=== PATIENT | female | born 1945 | race Caucasian/White ===

== ENCOUNTER 2025-01-04 12:44 | Outpatient (REF) | payer MEDICARE, SELFPAY ==
[2025-01-04 13:07] LABS: MANUAL DIFF FLAG NO
[2025-01-04 13:24] LABS: Hematocrit 41.2 % (37.0-47.0); Hemoglobin 13.5 g/dl (12.0-16.0); Imm Gran Abs Auto 0.03 X10*3/uL (0.00-0.03); Imm Gran Pct Auto 0.4 % (0.0-0.4); Lymphocytes Absolute Auto 1.1 X10*3/uL (1.2-4.9); Mean Corpuscular HGB Conc 32.8 g/dl (31.0-35.0); Mean Corpuscular Hemoglobin 29.9 pg (27.0-33.0); Mean Corpuscular Volume 91.4 fL (80.0-98.0); NRBC Abs Auto 0.000 X10*3/uL (0.0-0.012); NRBC Pct Auto 0.0 /100WBC (0.0-0.2); Platelet Count 271 X10*3/uL (160-400); Red Blood Count 4.51 X10*6/uL (4.20-5.50); White Blood Count 8.0 X10*3/uL (4.8-10.8)
--- OUTSIDE RECORDS SUMMARY | 2025-01-04 13:39 | XMS_ITS | Patient Health Record ---
Author Organization [facility] Address [address] [place] [address] Care Team Providers Care Traffic Court Magistrate Name Role Phone Johnny Mally BASSETT Primary Care Provider Nikos Varela Unavailable [phone] Allergies Allergen (clinical drug ingredient) Drug/Non Drug Allergy documented on EMR Reaction Allergy Type Onset Date Status amoxicillin AMOXICILLIN (uncoded) Unknown Allergy Active Results Component Value Reference Range Notes Complete Blood Count Auto Di ff (Not yet reviewed by provider) Interpretation: Performing Lab:[facility], [address] [place] [id number] Notes/Report: White Blood Count 8.0 4.8-10.8 X10*3/uL Red Blood Count 4.51 4.20-5.50 X10*6/uL Hemoglobin 13.5 12.0-16.0 g/dl Hematocrit 41.2 37.0-47.0 % Mean Corpuscular Volume 91.4 80.0-98.0 fL Mean Corpuscular Hemoglobin 29.9 27.0-33.0 pg Mean Corpuscular HGB Conc 32.8 31.0-35.0 g/dl Red Cell Distribution Width 13.6 11.0-16.0 % Platelet Count 271 160-400 X10*3/uL Mean Platelet Volume 10.3 9.4-12.3 fL Neutrophils Percent Auto 77.1 45-73 % Imm Gran Pct Auto 0.4 0.0-0.4 % Lymphocytes Percent Auto 14.2 20-40 % Monocytes Percent Auto 6.5 2-11 % Eosinophils Percent Auto 1.3 0-4 % Basophils Percent Auto 0.5 0-2 % NRBC Pct Auto 0.0 0.0-0.2 /100WBC Neutrophils Absolute Auto 6.2 2.0-8.3 x10*3/u L Imm Gran Abs Auto 0.03 0.00-0.03 X10*3/uL Lymphocytes Absolute Auto 1.1 1.2-4.9 X10*3/u L Monocytes Absolute Auto 0.5 0.1-1.2 X10*3/uL Eosinophils Absolute Auto 0.1 0.0-0.4 X10*3/u L Basophils Absolute Auto 0.0 0.0-0.2 X10*3/uL NRBC Abs Auto 0.000 0.0-0.012 X10*3/uL Reason For Referral No Information Medications Medication SIG (Take, Route, Frequency, Duration) Notes Start Date End Date Status valACYclovir HCl 500 MG TAKE 1 TABLET BY MOUTH DAILY.. Oral for 30 Active Omeprazole 20 MG TAKE ONE CAPSULE BY MOUTH TWICE A DAY FOR 4 WEEK THEN TAKE ONE CAPSULE BY MOUTH EVERY DAY THEREAFTER Oral for 30 Unknown SinuCleanse Neti Pot Unknown Tums Smoothies 750 MG 1 tablet Orally On ce a day for 30 day(s) Unknown Caltrate 600+D 600-400 MG-UNIT 1 tablet with meals Orally Twice a day Unknown Imodium A-D 2 MG 1 tablet as needed Orally Four times a day Unknown Tylenol Extra Strength 500 MG 1 tablet as needed Orally every 6 hrs Unknown Hydrocortisone as directed before infusion Unknown Levothyroxine Sodium 50 MCG Oral for 30 Unknown Metoprolol Succinate ER 25 MG Oral for 30 Unknown Eliquis 2.5 MG TAKE ONE TABLET BY MOUTH TWICE A DAY Oral for 30 Unknown Advil 200 MG 1 tablet as needed Orally prn Unknown Immune Globulin (Human) once a month Unknown tylenol before infusion Unkn own Benadryl before infusion Unkn own Immunizations Vaccine Route Administration Date Status Comme nts Flu vaccine no Preserv 3 and > Unknown 01/17/2016 Admin istered Influenza Unknown 04/06/2020 Administered Influenza Unknown 04/06/2021 Administered Influenza Unknown 04/30/2022 Administered Influenza Unknown 04/28/2024 Administered Social History Alcohol Screen Question Answer Notes Did you have a drink containing alcohol in the p ast year? No Points 0 Interpretation Negative Section Notes: Nonsmoker; occ. alcohol Nonsmoker; occ. alcohol Nonsmoker; occ. alcohol Nonsmoker; occ. alcohol Nonsmoker; occ. alcohol Nonsmoker; occ. alcohol Nonsmoker; occ. alcohol Nonsmoker; occ. alcohol Problems Problem Type SNOMED Code ICD Code Onset Dates Problem Status W/U Status Risk Notes Problem Irritable bowel syndrome (63963463) Irritable bowel syndrome (K58.9) Active confirmed Problem Rectal bleeding (30202261) Rectal bleeding (K62.5) Active confirmed Problem 951801718 Irritable bowel syndrome with diarrhea (K58.0) Active confirmed Problem Irritable bowel syndrome (14472998) IBS (irritable bowel syndrome) (K58.9) Active confirmed Problem 088494553 Gastroesophageal reflux disease without esophagitis (K21.9) Active confirmed Problem 015943357 Gastroesophageal reflux disease, esophagitis presence not specified (K21.9) Active confirmed Problem Hemorrhage of rectum and anus (096916195) Rectal bleed (K62.5) Active confirmed Problem 40916375 Diarrhea, unspecified type (R19.7) Active confirmed Problem Left lower quadrant pain (650476909) Intermittent left lower quadrant abdominal pain (R10.32) Active confirmed Vital Signs Temperature 97.9 degrees Fahrenheit 12/29/2024 Blood pressure diastolic 01 mm Hg 12/29/2024 Height 66 in 12/29/2024 Blood pressure systolic 001 mm Hg 12/29/2024 Weight 163.2 lbs 12/29/2024 BMI 26.34 kg/m2 12/29/2024 Procedures Procedure Date Ordered Date Performed Result Body Sit e COLONOSCOPY 12/29/2024 N/A Encounters Encounter Location Date Provider Diagnosis [facility] [address] [place] [phone] 12/29/2024 Nikos Jeffery Rectal bleeding K62.5 and Irritable bowel syndrome K58.9 [facility] [address] [place] [phone] 12/29/2024 Nikos Jeffery Rectal bleed K62.5 Assessments Encounter Date Diagnosis (ICD Code) Assessment Notes Treatment Notes Treatment Clinical Notes Section Notes 12/29/2024 Irritable bowel syndrome (ICD-10 - K58.9) Overall, Jeromy appears quite well. We did review that her current symptoms of bleeding seem most consistent with her known perianal disease of internal hemorrhoids in relation to the irritable bowel syndrome and some constipation. The fact that she is on Eliquis would certainly predispose her to increased bleeding on that basis as well. However, I did advise her that given that her last colonoscopy was in 2017, she has a history of tubular adenomas, and the bleeding does seem to be increasing in frequency, it would not be unreasonable that she undergo a colonoscopy for definitive evaluation as it has been a long time since her last exam. Again, I advised her that the most likely diagnosis is that of hemorrhoidal bleeding. However, I advised her that it would be important to exclude a polyp or other lesion that could predispose to colon cancer down the road. She is 79 years old but she appears to be in good clinical condition and I think she would tolerate the procedure without problems. Full consent has been obtained from her for the colonoscopy, including risks of bleeding and perforation. The procedure will be done with monitored anesthesia care. We did review the rationale for the colonoscopy in regard to colorectal cancer prevention and/or early detection. In the meantime, I did advise her to be sure to stay on a healthy and high-fiber diet so as to minimize constipation and straining. I did advise her to contact me prior to the procedure if she develops any increasing symptomatology. She was given the below instructions regarding adjustment of her Eliquis for the procedure. Jeromy was very comfortable with this plan. Thank you again for allowing me to participate in Jeromy's care. I shall continue to keep you advised of her progress. 12/29/2024 Rectal bleeding (ICD-10 - K62.5) Overall, Jeromy appears quite well. We did review that her current symptoms of bleeding seem most consistent with her known perianal disease of internal hemorrhoids in relation to the irritable bowel syndrome and some constipation. The fact that she is on Eliquis would certainly predispose her to increased bleeding on that basis as well. However, I did advise her that given that her last colonoscopy was in 2017, she has a history of tubular adenomas, and the bleeding does seem to be increasing in frequency, it would not be unreasonable that she undergo a colonoscopy for definitive evaluation as it has been a long time since her last exam. Again, I advised her that the most likely diagnosis is that of hemorrhoidal bleeding. However, I advised her that it would be important to exclude a polyp or other lesion that could predispose to colon cancer down the road. She is 79 years old but she appears to be in good clinical condition and I think she would tolerate the procedure without problems. Full consent has been obtained from her for the colonoscopy, including risks of bleeding and perforation. The procedure will be done with monitored anesthesia care. We did review the rationale for the colonoscopy in regard to colorectal cancer prevention and/or early detection. In the meantime, I did advise her to be sure to stay on a healthy and high-fiber diet so as to minimize constipation and straining. I did advise her to contact me prior to the procedure if she develops any increasing symptomatology. She was given the below instructions regarding adjustment of her Eliquis for the procedure. Jeromy was very comfortable with this plan. Thank you again for allowing me to participate in Jeromy's care. I shall continue to keep you advised of her progress. 12/29/2024 Rectal bleed (ICD-10 - K62.5) Plan Of Treatment Pending Test Test Name Order Date COLONOSCOPY 12/29/2024 LIVER PROFILE 12/29/2024 IRON + IBC (FE) 12/29/2024 CBC w DIFF 12/29/2024 Complete Blood Count Auto Diff Ferritin 12/29/2024 Future Test Test Name Order Date COLONOSCOPY 12/31/2011 UPPER GI ENDOSCOPY 09/10/2016 COLONOSCOPY 09/10/2016 Next Appt Details Provider Name:Nikos Jeffery , 03/14/2025 01:30:00 PM, [address] [place] [address] , [place], [place], [phone], Insurance Providers Payer Name Payer Address Payer Phone Subscriber Number Group Number Insured Name Patient Relationship to Insured Coverage Start Date Coverage End Date [facility] [address] [place] [address] [id number] JEROMY BENNETT Self - patient is the insured Medical (General) History Medical History History ICD Code Colonoscopy 05-10-2002-negative for polyp s Skin cancer left ear-squamous Chronic lymphocytic leukemia (CLL)-dx'd in 2004-followed by Dr. 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 colonoscopy in 02/2017- no polyps, n o colitis EGD in 02/2017 with a small H H- no esophagitis nor Funes's, no celiac disease, no Hpylori Irritable bowel syndrome-had normal duod enal biopsies in 2016 CLL- followed at [facility] 03/2022 Surgical History Surgery Date(Month/Year) Tonsillectomy with finding of the lympho ma/CLL Skin cancers as above Cataracts Port in chest-removed in 2008 Cholecystectomy Appy Hysterectomy with BSO Spinal tumor- benign
--- OUTSIDE RECORDS SUMMARY | 2025-01-04 13:39 | XMS_ITS | Patient Health Record ---
[facility] Organization [facility] Address [address] [place] [address] Care Team Providers Care Engineer Internship Name Role Phone Rocco Mcguire MD Primary Care Provider Andrés Meade Unavailable [phone] Allergies Allergen (clinical drug ingredient) Drug/Non Drug Allergy documented on EMR Reaction Allergy Type Onset Date Status amoxicillin Amoxicillin Unknown Drug Allergy Act pierre Reason For Referral No Information Medications Medication SIG (Take, Route, Fr equency, Duration) Notes Start Date End Date Status Tylenol Active Citracal + D Not-Jarred ing Advil Not-Taking Gas-X 80 MG 1 tablet after meals and at bedtime as needed Orally Four times a day Active Gabapentin 300 MG (Prior Auth: Rx Ref#:[id number]) Oral; Duration: 30 Active traMADol HCl 50 MG (Schedule IV Drug) ( Prior Auth: Rx Ref#:[id number]) Oral; Duration: 5 Not-Taking LORazepam 0.5 MG 1 tablet as needed O rally every 6 hrs Active Tums 500 MG 1 tablet Orally Once a day Active Reclast 5 MG/100ML Intravenous Not-Taking Zantac Active Social History Tobacco Use: Social History Observation Description Date Details (start date - stop date) Former Smoker NA - NA Tobacco Use/Smoking Question Answer Notes Are you a: former smoker When did you stop smoking? 53 yrs ago Additional Findings: Tobacco Non-User Current no n-smoker Alcohol Screen Question Answer Notes Did you have a drink containing alcohol in the p ast year? No Points 0 Interpretation Negative Tobacco use other than smoking: Question Answer Notes Are you an other tobacco user? No Problems Problem Type SNOMED Code ICD Code Onset Dates Problem Status W/U Status Risk Notes Problem Acquired hammer toe of left foot (9973921524678 103) Hammertoe of left foot (M20.42) Active confirmed Problem Acquired hammer toe of right foot (2321688444649 105) Hammertoe of right foot (M20.41) Active confirmed Plan Of Treatment Pending Test Test Name Order Date [id number] OF HEMATOMA/FLUID 018 Insurance Providers Payer Name Payer Address Payer Phone Subscriber Number Group Number Insured Name Patient Relationship to Insured Coverage Start Date Coverage End Date [employer] Medicare [id number] [address] [address] [place] [address] [id number] Kaitlynn Rankin Self - patient is the insured Medical (General) History Medical History History ICD Code Colonic polyps Anxiety disorder Basal cell carcinoma Cataracts Carpal tunnel Chronic Lymphocytic leukemia(CLL) 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
--- OUTSIDE RECORDS SUMMARY | 2025-01-04 13:39 | XMS_ITS | Clinical Summary ---
Author Organization [facility] Address [address] [place] [address] Care Team Providers Care Steam Crane Operator Name Role Phone Unavailable Primary Care Provider Unavailabl e Social History Tobacco Use Types Packs/Day Years Used Date Smoking Tobacco: Never Assessed Comments Unknown Sex and Gender Information Value Date Recorded Sex Assigned at Not on file Legal Sex Female 3:46 PM EST Gender Identity Not on file Sexual Orientation Not on file Plan of Treatment Health Maintenance Due Date Last Done Comments DTaP,Tdap,and Td Vaccines (1 - Tdap) 1962 Pneumococcal Vaccine: 50+ Ye ars (1 of 1 - PCV) 1993 Zoster Vaccines (1 of 2) 1993 RSV Immunization Adult Patie nts (1 - 1-dose 75+ series) 2018 COVID-19 Vaccine ( - 2023-2 5 season) 2024 Depression Screening 05/16/2024 Falls Risk Assessment 05/16/2024 Osteoporosis Screening (Bone Density Screening) 05/16/2024 Social Influencers of Health Screening 05/16/2024 Influenza Vaccine (Season Ended) 2025 HIB Vaccines Aged Out No longer eligi ble based on patient's age to complete this topic HPV Vaccines Aged Out No longer eligi ble based on patient's age to complete this topic Hepatitis A Vaccines Aged Out No long er eligible based on patient's age to complete this topic Hepatitis B Vaccines Aged Out No long er eligible based on patient's age to complete this topic IPV Vaccines Aged Out No longer eligi ble based on patient's age to complete this topic MMR Vaccines Aged Out No longer eligi ble based on patient's age to complete this topic Meningococcal ACWY Vaccine Aged Out N o longer eligible based on patient's age to complete this topic Meningococcal B Vaccine Aged Out No l onger eligible based on patient's age to complete this topic RSV Immunization Patients Un tosha 20 months Aged Out No longer eligible b ased on patient's age to complete this topic Varicella Vaccines Aged Out No longer eligible based on patient's age to complete this topic
--- OUTSIDE RECORDS SUMMARY | 2025-01-04 13:39 | XMS_ITS | Data Portability ---
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 She was able to identify an association that her cough is worse when and slightly after she finishes eating or with her pills. A fiberoptic laryngoscopy was performed and was benign today. Further evaluation with a modified barium swallow may help determine if there is any aspiration events. We may review results with a telehealth [email or web address] Not available 02/09/2024 15:53:06 05/26/2024 05/26/[address] [facility] ed barium swallow shows flash laryngeal penetration as well as a prominent cricopharyngeal bar. She describes her cough can also be triggered by prolonged talking. 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 For the prominent cricopharyngeal bar a referral to gastroenterology may also be valuable as they can occasionally perform a dilation. The prominent cricopharyngeal muscle may represent a component of muscle tension in the area of the larynx again consistent with irritable larynx. She would like to discuss this further with her primary care team and then request referral to swallow therapy or GI through their office [email or web address] Not available 05/26/2024 16:29:15 Plan of Treatment Reminders Order Date Submit Date Provider Last Modified By Organization Details Last Modified Time Details Appointments None recorded. Lab None recorded. Referral None recorded. Procedures None recorded. Surgeries None recorded. Imaging [place], modified barium swallow study 2023 024 [facility] Diagnosit Imaging Dept, [address] [place] [address], [id number], 12:24:36 Medication Orders None recorded. Patient TargetsNo targets recorded. Patient InstructionsNo instructions recorded. Reason for Referral None Reported. Results Created Date Observation Date Name Description Value Unit Range Abnormal Flag Note LastModifiedBy Organization Detail LastModifiedTime 02/25/2008/21/2021 imagi ng/di agnos tic resul t No observ ation record ed. [email or web address] Not Available 01:53:27 02/25/2006/14/2021 imagi ng/di agnos tic resul t No observ ation record ed. [email or web address] Not Available 01:53:53 04/30/2004/29/2024 valeria GRULLON study [facility] Diagno stic Imagin g Depart ment [address] [place] [address] ____ Gus t: JEROMY BENNETT /Age/S ex: 3 - 79 - F Unit#: [id number] Locati on/Sta tus: CARISA T/PRE CLI Accoun t#: [id number] Mnemon ic/Ord ering Site: [facility]/S PDI Orderi ng Physic shira: DINO GARSIA MD ___ CR Barium Bibo w W Video - - 1007 Report Status :Ana Lilia GUTIERRES AL HISTOR Y: DYSPHA JULIANNA. STUDY: Modifi ed barium swallo w study COMPAR SINGH: None. HISTOR Y: Gus fuller is an 79-yea r-old female with histor y of dyspha julianna. Tonsil lectom y 2 years ago due to neopla sm. Denies radiat ion to the head and/or neck. TECHNI QUE: Multip le sequen tial fluoro scopic images of the latera l neck were obtain ed for a swallo wing functi on study. Barium enhanc ed consis tencie s of puddin g, honey, nectar , thin liquid , semi-s olid, and a 13 mm barium tablet were utiliz ed for evalua tion. Examin ation was perfor med with the speech therap ist sabrina fuller. VALENTE GS: There is a very small amount of flash laryng eal penetr ation with no eviden ce of felicia aspira tion on thin barium consis tency. No eviden ce for penetr ation or aspira tion on any of the other variou s consis tencie s. 13mm barium tablet was swallo wed withou t diffic ulty with prompt passag e of pill from the esopha kaylie into the stomac h. Note, there is a smooth media job titles ior shelfl natasha fillin g defect in the esopha kaylie at the level of C5-6, consis tent with cricop haryng eal bar with associ ated modera te esopha geal narrow ing. DAP: 0.31 Gycm 2 Exam perfor med and dictat ed by: Mary Brenner PA-C Superv ising physic shira: Shawn Catherine MD IMPRJIMENEZ MOON: 1. Very small amount of postsu rgical penetr ation with no eviden ce of felicia aspira tion on thin barium . 2. 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 Please refer to the anant rebollar speech pathol ogist report for furthe r detail s as clinic roberth rebollar. Dictat ing Physic shira: Joshua CATHERINE Electr onical ly Signed by: Joshua CATHERINE Dic Date/T wendy: 1233 Sign date/T wendy: [email or web address] [facility] Diagnosit Imaging Dept [address] [place], [address], 05/21/2024 14:42:50 05/18/2004/29/2024 ruchi em isabel study No observ ation record ed. [email or web address] Not Available 05/21 14:42:31 Result Notes Documentation Provider Name and Address Organization Details Recorded Time Fl, Modified Barium Swallow Study : [facility] Diagnostic Imaging Department [address] [place] [id number] Patient: JEROMY BENNETT D.O.B./Age/Sex: 1945 - 79 - F Unit#: [id number] Location/Status: SPREHST/PRE CLI Mnemonic/Ordering Site: [facility] Ordering Physician: EILEEN GARSIA MD CR Barium Swallow W Video - 04/29/24 - 1007 Report Status:Signed CLINICAL HISTORY: DYSPHAGIA. STUDY: Modified barium swallow study COMPARISON: None. HISTORY: Patient is an 79-year-old female with history of dysphagia. 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 Denies radiation to the head and/or neck. TECHNIQUE: Multiple sequential fluoroscopic images of the lateral neck were obtained for a swallowing function study. Barium enhanced consistencies of pudding, honey, nectar, thin liquid, semi-solid, and a 13 mm barium tablet were utilized for evaluation. Examination was performed with the speech therapist present. FINDINGS: There is a very small amount of flash laryngeal penetration with no evidence of felicia aspiration on thin barium consistency. No evidence for penetration or aspiration on any of the other various consistencies. 13mm barium tablet was swallowed without difficulty with prompt passage of pill from the esophagus into the stomach. 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 DAP: 0.31 Gycm 2 Exam performed and dictated by: Mary Brenner PA-C Supervising physician: Shawn Catherine MD IMPRESSION: 1. Very small amount of postsurgical penetration with no evidence of felicia aspiration on thin barium. 2. 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 Please refer to the dedicated speech pathologist report for further details as clinically indicated. Dictating Physician: SHAWN CATHERINE Electronically Signed by: SHAWN CATHERINE Dic Date/Time: 04/29/24 1233 Sign date/Time: 04/30/24 1153 Kathy boyd [place] - [facility] 05/21/2024 14:42:50 Problems Name Problem SNOMED Code Status Onset Date Resolution Date Notes Provider Name and Address Organization Details Recorded Time Hypertro phy of tonsils 80475948 Active 2021 Hypertro phy of tonsils; Note: Date Diagnose d: 2 11:00 AM (J35.1) Not Available [facility] 4 02:52:19 Chronic maxillar y sinusiti s 96488858 Active 2015 Chronic maxillar y sinusiti s; Note: Date Diagnose d: 06/05/20 16 10:34 AM (J32.0) Not Available [facility] 4 02:52:21 Mixed conducti ve and sensorin eural hearing loss of left ear 57507615997 107 Active 2015 Mixed conducti ve and sensorin eural hearing loss, unilater al, left ear, with unrestri cted hearing on the contrala teral side; Note: Date Diagnose d: 11/09/2015 1:30 PM (H90.72) Not Available [facility] 4 02:52:16 Chronic lymphoid leukemia , disease 11169940 Active 2021 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; Note: Date Diagnose d: 2 10:47 AM (C91.10) EILEEN GARSIA MD [address] [place] [address], [place], [phone] , [facility] - [facility] 4 12:51:11 Sensorin eural hearing loss of bilatera l ears 905913132 Active 2015 Sensorin eural hearing loss, bilatera l; Note: Date Diagnose d: 6 2:30 PM (H90.3) Not Available [facility] 4 02:52:20 Acute pharyngi tis 192455770 Active 2021 Sore throat (acute) NOS; Note: Date Diagnose d: 12/11/2021 3:22 PM (J02.9) Acute pharyngi tis, unspecif ied; Note: Date Diagnose d: 2 10:46 AM (J02.9) ; Start Date : 10/18/19 22 Not Available [facility] 4 02:52:17 Acute serous otitis media of left ear [id number] 47609 Completed 201502/06/2024 Acute serous otitis media, left ear; Note: Date Diagnose d: 11/09/2015 3:47 PM (H65.02) Not Available [facility] 4 02:52:18 Disorder of nasal sinus 1527593 Active 2018 Other specifie d disorder s of nose and nasal sinuses; Note: Date Diagnose d: 09/08/2018 1:22 PM (J34.89) Not Available [facility] 4 02:52:22 Disorder of the nose 81339607 Active 2018 Other specifie d disorder s of nose and nasal sinuses; Note: Date Diagnose d: 09/08/2018 1:22 PM (J34.89) Not Available [facility] 4 02:52:23 Allergic rhinitis 95314399 Active 2014 Allergic rhinitis : Due to other allergen ; Note: Date Diagnose d: 03/10/2015 10:59 AM (477.8) Not Available [facility] 4 02:52:17 Chronic rhinitis 87206081 Active 2015 Chronic rhinitis ; Note: Date Diagnose d: 11/09/2015 3:48 PM (J31.0) Not Available [facility] 4 02:52:20 Follow-u p visit Active 2021 Encounte r for follow-u p examinat ion after 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 ; Note: Date Diagnose d: 2 2:32 PM (Z08) Not Available [facility] 4 02:52:21 Acute maxillar y sinusiti s 93911432 Active 2015 Acute maxillar y sinusiti s; Note: Date Diagnose d: 02/06/2015 2:34 PM (461.0) ; Start Date : 02/07/20 15 Acute recurren t maxillar y sinusiti s; Note: Date Diagnose d: 09/05/2015 3:32 PM (J01.01) Not Available [facility] 4 02:52:20 Acute frontal sinusiti s 78122041 Active 2014 Acute frontal sinusiti s; Note: Date Diagnose d: 02/06/2015 2:34 PM (461.1) Not Available [facility] 4 02:52:23 Cough 33389538 Active 2015 Cough; Note: Date Diagnose d: 06/05/20 16 10:41 AM (R05) EILEEN GARSIA MD [address] [place] [address], [place], [address] , [facility] 4 12:51:15 Recurren t acute sinusiti s 427789331 Active 2014 Acute recurren t sinusiti s involvin g more than one sinus but not pansinus itis; Note: Date Diagnose d: 05/17/20 15 4:55 PM (J01.81) Not Available [facility] 4 02:52:18 Sensorin eural hearing loss 58146800 Active 2015 Sensorin eural hearing loss, unilater al, right ear, with unrestri cted hearing on the contrala teral side; Note: Date Diagnose d: 11/09/2015 1:30 PM (H90.41) Not Available [facility] 4 02:52:18 Posterio r rhinorrh ea 86750153 Active 2015 Postnasa l drip; Note: Date Diagnose d: 6 11:32 AM (R09.82) Not Available [facility] 4 02:52:22 Impacted cerumen in left ear 73360154791 43973 Active 2015 Impacted cerumen, left ear; Note: Date Diagnose d: 6 11:33 AM (H61.22) Not Available [facility] 4 02:52:19 Dizzines s and giddines s 568364408 Active 2015 Dizzines s and giddines s; Note: Date Diagnose d: 11/09/2015 1:30 PM (R42) Not Available [facility] 4 02:52:17 Headache 03206931 Active 2014 Headache ; Note: Date Diagnose d: 06/16/20 15 2:55 PM (R51) Not Available [facility] 4 02:52:18 Dysphagi a 43036380 Active 2023 EILEEN GARSIA MD [address] [place] [address], [phone] , [facility] 4 15:48:37 Problem Notes None recorded. Procedures Surgical History Date Name Laterality Status Provider Name and Address Organization Details Recorded Time 05/26/2024 Telehealth completed EILEEN GARSIA MD [address] [place] [address], [phone], [facility] 05/25/2024 14:31:24 02/09/2024 FOL_DP completed EILEEN GARSIA MD [address] [place] [address], [phone], [facility] 02/09/2024 15:48:21 Imaging Results None recorded. Procedure Notes None recorded. Medical Equipment None Reported. Allergies Allergen ID Allergen Name Allergen Category Reaction Reaction Severity Criticality Documentation Date Start Date Code Code System Note Provider Name and Address Organization Details Recorded Time 13743 amoxicill in medicatio n other Not available Not available 11/18/2023 723 RxNorm React ion: unkno wn, unspe cifie d;; Not Available [facility] 01:02:39 48519 codeine sulfate medicatio n other Not available Not available 11/18/2023 29444 RxNorm React ion: unkno wn, unspe cifie d;; Not Available [facility] 4 01:02:50 Medications Name Sig Start Date Stop Date Status Note LastModified by Organization Details LastModified Time prednison e 10 mg tablet 4 tablet by mouth 04/05 completed Medicati on ID: [id number] P ishaan d By Name: ETTA Montes nd Name: predniso ne Send Method: E-Prescr ibed Sub s Allowed: subs OK Speci al Instruct ion: 4 tablets 1 x daily for 5 days Med icationG enericNa me: predniso ne Not Available Not Available Not Available cetirizin e 10 mg tablet TAKE 1 TABLET BY MOUTH DAILY NEEDED FOR ALLERGIE S SYMPTOMS . active Not Available Not Available No t Available azithromy alta 250 mg tablet TAKE TWO TABLETS BY MOUTH ONE DOSE ON THE FIRST DAY, THEN TAKE ONE TABLET DAILY THEREAFT ER. 02/08 completed Not Available Not Available Not Available ofloxacin 0.3 % eye drops 08/29 completed Medicati on ID: [id number] Du ration Value: 16 Brand Name: ofloxaci n Send Method: E-Prescr ibed Sub s Allowed: subs OK Medic ationGen ericName : ofloxaci n Not Available Not Available Not Available prednison e 20 mg tablet 2 tablet by mouth 2015 active Medicati on ID: [id number] D uration Value: 5 Prescri bed By Name: ETTA Montes nd Name: predniso ne Send Method: E-Prescr ibed Sub s Allowed: subs OK Medic ationGen ericName : predniso ne Not Available Not Available Not Available valacyclo vir 500 mg tablet TAKE 1 TABLET BY MOUTH DAILY. active Not Available Not Available No t Available sulfameth oxazole 800 mg-trimet hoprim 160 mg tablet TAKE 1 TABLET BY MOUTH EVERY FRIDAY, AND FRIDAY active Not Available Not Available No t Available lorazepam 0.5 mg tablet TAKE ONE TABLET BY MOUTH DAILY, INSTR: NEEDED FOR ANXIETY. active Not Available Not Available No t Available benzonata te 100 mg capsule TAKE ONE CAPSULE BY MOUTH THREE TIMES A DAY FOR 7 DAYS NEEDED FOR COUGH 02/08 completed Not Available Not Available Not Available doxycycli ne monohydra te 100 mg capsule TAKE ONE CAPSULE BY MOUTH TWICE A DAY FOR 7 DAYS 02/08 completed Not Available Not Available Not Available levothyro xine 50 mcg tablet TAKE 1 TABLET BY MOUTH DAILY. active Not Available Not Available No t Available flecainid e 50 mg tablet 06/13 completed Medicati on ID: [id number] B chavo Name: laine abbott Send Method: E-Prescr ibed Sub s Allowed: subs OK Speci al Instruct ion: TAKE ONE TABLET BY MOUTH EVERY 12 HOURS Me dication GenericN suzanne: flecaini de Not Available Not Available Not Available omeprazol e 20 mg capsule,d elayed release TAKE 1 CAPSULE BY MOUTH DAILY. active Not Available Not Available No t Available mupirocin 2 % topical ointment 1 a small amount to affected area 02/08 completed Medicati on ID: [id number] D uration Value: 7 Prescri bed By Name: Sammy Delatorre nd Name: judie sebastian Send Method: E-Prescr ibed Sub s Allowed: subs OK Medic ationGen ericName : judie n Not Available Not Available Not Available metoprolo l succinate ER 25 mg tablet,ex tended release 24 hr TAKE ONE-HALF TABLET BY MOUTH TWICE A DAY active Not Available Not Available No t Available methylpre dnisolone 4 mg tablets in a dose pack TAKE ORALLY INSTRUCT ED. 02/08 completed Not Available Not Available Not Available fluticaso ne propionat e 50 mcg/actua tion nasal spray,clarence pension USE 1 SPRAY IN BOTH NOSTRILS DAILY. active Not Available Not Available No t Available ipratropi um bromide 21 mcg (0.03 %) nasal spray 2 spray into both nostrils 10/26/ 2016 02/23 /2022 completed Medicati on ID: [id number] P rescribe d By Name: Claudia Pate PA-C Bra nd Name: ipratrop ium bromide Send Method: E-Prescr ibed Sub s Allowed: subs OK Medic ationGen ericName : ipratrop ium bromide Not Available Not Available Not Available metoprolo l tartrate 25 mg tablet TAKE ONE-HALF TABLET BY MOUTH TWICE A DAY active Not Available Not Available No t Available Pulmicort Flexhaler 90 mcg/actua tion breath activated active Medicati on ID: [id number] B rand Name: Pulmicor t Flexhale r Send Method: E-Prescr ibed Sub s Allowed: subs OK Medic ationGen ericName : Pulmicor t Flexhale r Not Available Not Available Not Available omeprazol e 20 mg tablet,de layed release 06/13 completed Medicati on ID: [id number] Br and Name: Prilosec Send Method: E-Prescr ibed Sub s Allowed: subs OK Speci al Instruct ion: TAKE ONE CAPSULE BY MOUTH daily BEFORE A MEAL Med icationG enericNa me: Prilosec Medicat ion ID: [id number] Br and Name: Prilosec Send Method: E-Prescr ibed Sub s Allowed: subs OK Speci al Instruct ion: TAKE ONE CAPSULE BY MOUTH daily BEFORE A MEAL Med icationG enericNa me: Prilosec Not Available Not Available Not Available Heartburn Relief (ranitidi ne) 150 mg tablet 06/13 completed Medicati on ID: [id number] Br and Name: Zantac S end Method: E-Prescr ibed Sub s Allowed: subs OK Medic ationGen ericName : Zantac Not Available Not Available Not Available Eliquis 2.5 mg tablet TAKE ONE TABLET BY MOUTH TWICE A DAY FOR 30 DAYS active Not Available Not Available No t Available Imbruvica 140 mg capsule active Not Available Not Available Not Available Vitals Date Recorded Body height Body mass index (BMI) Body weight Provider Name and Address Organization Details Last Updated DateTime 02/09/2024 168.91 cm 26.2 kg/m2 70042.74 g Kathy Martinez [place] - [facility] 02/09/2024 15:30:53 Social History None recorded. Functional Status None recorded. Mental Status None recorded. Family History Nothing Reported. Medical History No medical history recorded. Gynecological HistoryNo gynecological history recorded. Obstetrics History GPAL:G 0 P 0 0 0 0 Past Encounters Encounter ID Performer Location Encounter Start Date Encounter Closed Date Diagnosis/Indication Diagnosis SNOMED-CT Code Diagnosis ICD10 Code Diagnosis Note [id number] EILEEN GARSIA MD [facility] [address] [address] 02/09/2024 14:40:23 02/09/2024 15:54:03 Chronic lymphoid leukemia, disease 48175977 C91.10 Cough 62416694 R05.3 Dysphagia 20582075 R13.1 0 [id number] EILEEN GARSIA MD [facility] [address] [phone] 05/26/2024 16:13:43 05/27/2024 07:34:11 Cough 58240659 R05.3 Health Concerns Section Related Observation LastModified by Organization Detai ls LastModified Time None Recorded Concern Status LastModified by Organization Details LastModified Time None Recorded Advance Directives Directive None Recorded Payers Insurance Date Sequence Insurance Name Policy Number Policy Andres Covered Member ID Andres Member ID Guarantor Name 05/25/2024 1 [facility] (MEDICARE REPLACEMENT/A DVANTAGE - PPO) [id number] Jeromy Lewis Doktor [id number] Jeromy Lewis Doktor Notes Date Note Type Note Provider Name and Address Organization Details Recorded Time 02/09/2024 text/html cough, PNDmultip le times covid negativeonset end of Mar 2023initial trial of symptomatic management with flonase, tessalon perles, pulmicort, bactrim with no reliefproductive cough more after she eats or if she talks a lot with sistercxr - clearhx of CLL08/17/21 tonsillectomy - 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 no treatment was recommended 04/29/24 mod ba swallow Mercyvery small amount of flash laryngeal penetration with noevidence of felicia aspiration on thin barium consistency. No evidence forpenetration or aspiration on any of the other various consistencies. 13mmbarium tablet was swallowed without difficulty with prompt passage of pillfrom the esophagus into the stomach. Note, there is a smooth posteriorshelflike filling defect in the esophagus at the level of C5-6, consistentwith cricopharyngeal bar with associated moderate esophageal narrowing EILEEN GARSIA MD [address] [place] [address], [place], [phone], [place] - [facility] 05/26/2024 16:29:42 OBGyn Episode No OBEpisode recorded.
[2025-01-04 13:55] LABS: Alanine Aminotransferase 27 U/L (0-31); Albumin Level 3.8 g/dL (3.5-5.0); Alkaline Phosphatase 82 U/L (39-117); Aspartate Amino Transferase 37 U/L (5-31); Iron 81 mcg/dL (30-160); Percent Iron Saturation 24 % (15-50); Total Iron Binding Capacity 340 mcg/dL (228-428); Total Protein 6.7 g/dL (6.5-8.0); Unsaturated Iron Binding 259 ug/dL
[2025-01-04 14:12] LABS: Ferritin 48 ng/mL (10-250)
== END 2025-01-04 12:45 | disposition home or self-care (01) ==
LOC: HO.LAB 12:44
PROVIDERS: PCP Nurse Practitioner Family; Visit Provider Internal Medicine
DX: K62.5 Hemorrhage of anus and rectum (principal)
CPT/HCPCS: 36415; 80076; 82728; 83540; 85025

== ENCOUNTER 2025-01-24 09:21 | Day surgery (SDC) | payer MEDICARE, SELFPAY ==
--- OUTSIDE RECORDS SUMMARY | 2025-01-15 23:59 | XMS_ITS | Continuity of Care Document ---
Author Organization [facility] Haseeb Martinez lt Address [address] [place] [phone]- Support Name Relationship Address Phone DOKTOR, LAMB Personal Relationship Unknown Un available DOKTOR, LAMB Personal Relationship Unknown Un available DOKTOR, LAMB Personal Relationship Unknown Un available DOKTOR, LAMB Personal Relationship Unknown Un available DOKTOR, LAMB Personal Relationship Unknown Un available DOKTOR, LAMB Personal Relationship Unknown Un available DOKTOR, LAMB Personal Relationship Unknown Un available DOKTOR, LAMB Personal Relationship Unknown Un available DOKTOR, LAMB spouse Unknown Unavailable DOKTOR, LAMB Personal Relationship Unknown Un available DOKTOR, JACEY child Unknown Unavailable DOKTOR, STACEY child Unknown Unavailable DOKTOR, LAMB Personal Relationship Unknown Un available DOKTOR, LAMB Personal Relationship Unknown Un available DOKTOR, LAMB Personal Relationship Unknown Un available DOKTOR, LAMB Personal Relationship Unknown Un available DOKTOR, LAMB Personal Relationship Unknown Un available DOKTOR, LAMB Personal Relationship Unknown Un available DOKTOR, LAMB Personal Relationship Unknown Un available DOKTOR, LAMB Personal Relationship Unknown Un available DOKTOR, LAMB Personal Relationship Unknown Un available DOKTOR, LAMB Personal Relationship Unknown Un available Care Team Providers Care Commercial Drone Pilot Name Role Phone Johnny Mally JAMIL Primary Care Physician Encounter [facility] Date(s): 12/16/24 - 01/15/25 [facility] Adult [address] [place] [address]- Encounter Type: Triage Allergies, Adverse Reactions, Alerts Substance Criticality Severity Reaction Reaction Severity Status amoxicillin rash Active Immunizations Given and Recorded Vaccine Date Status Refusal Reason SARS-CoV-2(COVID-19)mRNA-LNP vac([id number]) 04/29/24 Recorded influenza virus vaccine, inactivated 04/16/24 Leo rded influenza virus vaccine, inactivated 1 04/25/23 Gi yahaira influenza virus vaccine, inactivated 05/02/22 Leo rded influenza virus vaccine, inactivated 03/17/21 Leo rded influenza virus vaccine, inactivated 03/31/20 Give n influenza virus vaccine, inactivated 04/15/19 Leo rded influenza virus vaccine, inactivated 2 04/21/18 Gi yahaira influenza virus vaccine, inactivated 3 04/03/17 Gi yahaira influenza virus vaccine, inactivated 04/24/16 Give n influenza virus vaccine, inactivated 04/11/15 Give n influenza virus vaccine, inactivated 04/26/14 Give n influenza virus vaccine, inactivated 05/12/13 Give n tetanus-diphtheria toxoids (Td) 02/18/24 Given tetanus-diphtheria toxoids (Td) 05/01/17 Given pneumococcal 20-valent conjugate vaccine 4 12/17/22 Given SARS-CoV-2 mRNA ([id number]-ergiy) vax 01/17/22 Recorded SARS-CoV-2 (COVID-19) mRNA BNT-162b2 vac 04/21/21 Recorded SARS-CoV-2 (COVID-19) mRNA BNT-162b2 vac 09/07/20 Given SARS-CoV-2 (COVID-19) mRNA BNT-162b2 vac 09/07/20 Recorded SARS-CoV-2 (COVID-19) mRNA BNT-162b2 vac 08/17/20 Given Influenza Virus Vaccine (oldterm) 5 05/2019 Recor ded pneumococcal 23-valent vaccine 6 05/04/15 Given pneumococcal 23-valent vaccine 10/25/09 Given pneumococcal 13-valent vaccine 03/09/15 Given Zostavax (oldterm) 7 11/05/12 Given Fluarix (oldterm) 04/20/12 Given tetanus/diphtheria/pertussis, acel(Tdap) 04/20/12 Given Pneumococcal Vaccine (oldterm) 12/25/04 Given 1Result Comment: [id number] 2Result Comment: [04/21/2018] 13842-440-14 3Result Comment: [04/03/2017] 23784-233-03 4Result Comment: [id number] 5[facility] 6Early/Late Reason: Other : 7Admin Note: [facility] Medications acetaminophen 500 mg oral tablet 1 or 2 tablet, By Mouth, Daily, PRN Pain , Mild, 0 Refills, Maintenance, 03/28/19 6:41:15 PM EDT Start Date: 03/28/19 Status: Ordered Repeat number: 1 apixaban 2.5 mg oral tablet 1 tablet = 2.5 mg, By Mouth, 2 times a day, # 60 tablet, 11 Refills, Maintenance, 07/21/24 10:19:00 AM EST, Tablet, [facility], 168, cm, 07/15/24 9:32:00 EST, Height, 75, kg, 259:32:00 EST, Dry Weight Start Date: 07/21/24 Stop Date: 07/16/25 Status: Ordered Quantity: 60.0 Unit: tablet Repeat number: 12 Calcium 600 +D oral tablet 1 tablet, By Mouth, Daily, 0 Refills, Maintenance, 11/12/22 12:39:00 PM EDT, Partial fill upon patient request if the prescription is for a schedule II opioid drug. Start Date: 11/12/22 Status: Ordered Repeat number: 1 cetirizine 10 mg oral tablet 1 tablet = 10 mg, By Mouth, Daily, PRN allergy symptoms/ runny nose, # 14 tablet, 0 Refills, Maintenance, 09/20/24 9:49:00 AM EDT, Tablet, [facility], 168, cm, 09/20/24 9:34:00 EDT, Height, 75.5, kg, 09/10/24 12:47:00 EST, Dry Weight Start Date: 09/20/24 Status: Ordered Quantity: 14.0 Unit: tablet Repeat number: 1 Flonase Allergy Relief 50 mcg/inh nasal spray 1 sprays, Nares, Both, Daily, # 16 Gm, 1 Refills, Maintenance, 03/11/24 10:52:00 AM EDT, [facility], 168, cm, 03/11/24 10:31:00 EDT, Height, 78, kg, 02/26/24 9:42:00 EDT, Dry Weight Start Date: 03/11/24 Status: Ordered Quantity: 16.0 Unit: g Repeat number: 2 IVIG See Instructions, 300 mg/kg IV Infusion every other month, 0 Refills, Maintenance, 10/10/22 12:09:00 PM EDT, Partial fill upon patient request if the prescription is for a schedule II opioid drug. Start Date: 10/10/22 Status: Ordered Repeat number: 1 levothyroxine 0.05 mg oral tablet 1 tablet, By Mouth, Daily, # 90 tablet, 1 Refills, Maintenance, 01/03/25 8:21:00 AM EDT, [facility], 168, cm, 12/08/24 9:32:00 EDT, Height, 75.4, kg, 12/08/24 9:32:00 EDT, Dry Weight Start Date: 01/03/25 Status: Ordered Quantity: 90.0 Unit: tablet Repeat number: 2 lidocaine 5% topical film 1 patch, Topically, Daily, remove patches after 12 hours, # 15 patch, 0 Refills, Maintenance, 11/15/24 7:16:00 PM EDT, Film, [facility], Partial fill upon patient request if the prescription is for a schedule II opioid drug., 1 patch Topically Daily,Instr:remove patches after 12 hours, 168, cm, 11/15/24 12:57:00 EDT, Height, 74, kg, 11/15/24 12:57:00 EDT, Dry Weight Start Date: 11/15/24 Status: Ordered Quantity: 15.0 Unit: patch Repeat number: 1 loratadine 10 mg oral tablet 10 mg, 1, tablet, By Mouth, Daily, as needed allergies, # 30 tablet, Refills 0, Tot. Refills 0, Maintenance, 10/25/24 11:44:00 AM EDT, Route to Pharmacy Electronically, [facility], Partial fill upon patient request if the prescription is for a schedule II opioid drug., 168, cm, 10/25/24 11:33:00 EDT, Height, 75.2, kg, 10/25/24 11:33:00 EDT, Dry Weight Start Date: 10/25/24 Status: Ordered Quantity: 30.0 Unit: tablet Repeat number: 1 LORazepam 0.5 mg oral tablet 1 tablet = 0.5 mg, By Mouth, Daily, NEEDED FOR ANXIETY, # 10 tablet, 0 Refills, Maintenance, 11/07/23 3:03:00 PM EDT, Tablet, [facility], Partial fill upon patient request if the prescription is for a schedule II opioid drug., 168, cm, 11/07/23 14:18:00 EDT, Height, 78, kg, 11/06/23 10:17:00 EDT, Dry Weight Start Date: 11/07/23 Status: Ordered Quantity: 10.0 Unit: tablet Repeat number: 1 Metoprolol Succinate ER 25 mg oral tablet, extended release 12.5 mg, 0.5, tablet, By Mouth, 2 times a day, # 90 tablet, Refills 3, Tot. Refills 3, Maintenance,04/09/24 4:38:00 PM EDT, Route to Pharmacy Electronically, [facility], 168, cm, 03/11/24 10:31:00 EDT, Height, 77.5, kg, 03/25/24 9:32:00 EDT, Dry Weight Start Date: 04/09/24 Status: Ordered Quantity: 90.0 Unit: tablet Repeat number: 4 Mylanta Gas Maximum Strength See Instructions, prn, 0 Refills, Maintenance, 06/07/21 2:01:00 PM EST, Partial fill upon patient request if the prescription is for a schedule II opioid drug. Start Date: 06/07/21 Status: Ordered Repeat number: 1 omeprazole 40 mg oral enteric coated capsule 1 capsule = 40 mg, By Mouth, Daily, 30 min before a meal, # 90 capsule, 0 Refills, Maintenance, 09/20/24 9:55:00 AM EDT, [facility], INCRESED STRENGTH, 168, cm, 09/20/24 9:34:00 EDT, Height, 75.5, kg, 09/10/24 12:47:00 EST, Dry Weight Start Date: 09/20/24 Stop Date: 12/19/24 Status: Ordered Quantity: 90.0 Unit: capsule Repeat number: 1 sulfamethoxazole-trimethoprim 800 mg-160 mg oral tablet See Instructions, TAKE ONE TABLET BY MOUTH EVERY FRIDAY, AND FRIDAY., # 39 tablet, 1 Refills, Maintenance, 12/10/23 5:09:00 PM EDT, [facility], 210, TAKE ONE TABLET BY MOUTH EVERY FRIDAY, AND FRIDAY., 168, cm, 12/08/23 12:43:00 EDT, Height, 78, kg, 11/06/23 10:17:00 EDT, Dry Weight Start Date: 12/10/23 Status: Ordered Quantity: 39.0 Unit: tablet Repeat number: 1 Tylenol 325 mg oral capsule 2 capsule = 650 mg, By Mouth, Every 4 hours, PRN Pain , Mild, # 90 capsule, 0 Refills, Maintenance,11/15/24 7:16:00 PM EDT, Capsule, [facility], Partial fill upon patient request if the prescription is for a schedule II opioid drug., 168, cm, 11/15/24 12:57:00 EDT, Height, 74, kg, 11/15/24 12:57:00 EDT, Dry Weight Start Date: 11/15/24 Status: Ordered Quantity: 90.0 Unit: capsule Repeat number: 1 valACYclovir 500 mg oral tablet 500 mg, 1, tablet, By Mouth, Daily, # 90 tablet, Refills 1, Tot. Refills 1, Maintenance, 12/09/23 3:48:00 PM EDT, Route to Pharmacy Electronically, [facility], 168, cm, 12/08/23 12:43:00 EDT, Height, 78, kg, 11/06/23 10:17:00 EDT, Dry Weight Start Date: 12/09/23 Stop Date: 06/06/24 Status: Ordered Quantity: 90.0 Unit: tablet Repeat number: 2 Vitamin D3 1000 intl units oral capsule 1 capsule = 25 mcg, By Mouth, Daily, # 100 capsule, 0 Refills, Maintenance, 09/20/24 9:40:00 AM EDT,Capsule, Partial fill upon patient request if the prescription is for a schedule II opioid drug. 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 Active Sacroiliac joint dysfunction of both sides Confirmed Active Right carpal tunnel syndrome Confirmed Active Chronic kidney disease, stage 3a 1 Confirmed Active CLL (chronic lymphocytic leukemia) 2 Confirmed Active Degeneration of lumbosacral intervertebral disc Confirmed Active Degeneration of thoracic disc without myelopathy Confirmed Active Diverticulosis Confirmed Active Essential tremor Confirmed Active Generalized anxiety disorder with panic attacks Confirmed Active GERD EGD 2016 esophagitis 3, 4 Confirmed Active History of L1 compression fracture Confirmed Active History of basal cell carcinoma (BCC) 5 Confirmed Active History of pulmonary embolus (PE) 6 Confirmed Active History of tonsillectomy he overall immunohistochemical results are compatible with the clinical history of CLL/SLL. Confirmed 08/17/21 Active Hx of herpes zoster 7 Confirmed Active Hypothyroidism Confirmed 08/17/20 Active Chronic anticoagulation Confirmed Active Multinodular goiter Confirmed Active Multiple pulmonary nodules 8 Confirmed 11/19/10 Active Osteoarthritis of right knee/ortho inje cted Confirmed 10/02/20 Active Osteoporosis 9, 10 Confirmed Active Paroxysmal atrial fibrillation chadsvasc3 abalated JUN 09 2020 Confirmed 12/04/18 Active Paroxysmal supraventricular tachycardia 11 Confirmed Active Peripheral neuropathy 12 Confirmed Active RLS (restless legs syndrome) Confirmed Active SCC (squamous cell carcinoma), 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 Confirmed Active Sciatica of left side Confirmed Active Depression, major, single episode, complete remission Confirmed Active 1Per chart review meeting GFR criteria 2RX 2008 3no EGd per GI.prn h23 4sees DR new no need EGD 5and rt arm 29569 7rt thorax 8stable 9frax 10high frax 20/4.5 11non-sustained but frequent beats seen on holter study 12/29/14 12normal b12/ no paraprotein, 13left ear Social History Social History Type Response Smoking Status Former smoker; Type: Cigarettes; Number of years: 42; Total pack years: 6; Started at age: 11; Stopped at age: 53; entered on: 03/09/15 Sex Sex Representation Female (finding) Patient Care team information Care Team Personnel Name: Delmis Philip Position: [facility] Onco RN Member Role: Primary Care Nurse Name: Diane Alves RN Position: [facility] LIZA Nurse Member Role: Primary Care Nurse Name: Mendoza Boles RN Position: [facility] RN Member Role: Primary Care Nurse Name: Danika Zamudio RN Position: [facility] RN Member Role: Primary Care Nurse Name: Mally Turner NP Position: [facility] PCO Associate Professional Member Role: PCP Address: [address] [place] [id number] Telecom: Name: Shannan Concepcion RN Position: [facility] RN Member Role: Primary Care Nurse Name: Jung Cleveland RN Position: [facility] Outreach Member Role: Primary Care Nurse Name: Pat Topete RN Position: [facility] Onco RN Member Role: Primary Care Nurse Name: Aleida Donis RN Position: [facility] AMB Nurse Member Role: Primary Care Nurse Name: Karen Clement RN Position: [facility] Onco RN Member Role: Primary Care Nurse Name: Faith Donnelly RN Position: [facility] RN Member Role: Primary Care Nurse Name: Joni Benavides RN Position: [facility] RN Member Role: Primary Care Nurse Care Team Related Persons Name: JACEY BENNETT Name: ADONIS BENNETT Name: STACEY BENNETT Insurance Providers Guarantor name: JEROMY BENNETT Health Plan Information #: 1 Payer: [facility] [employer] PPO Payer Identifier: Member Number: [id number] Group Number: [id number] Subscriber Identifier: [id number] Relationship to Subscriber: self Coverage Type: Medicare PPO Coverage Verification Date: NA Telecom: NA Address: Health Plan Information #: 2 Payer: [facility] [employer] HMO Payer Identifier: Member Number: [id number] Group Number: [id number] Subscriber Identifier: [id number] Relationship to Subscriber: self Coverage Type: NA Coverage Verification Date: NA Telecom: NA Address:
--- OUTSIDE RECORDS SUMMARY | 2025-01-20 06:45 | XMS_ITS | Patient Health Record ---
Author Organization [facility] Address [address] [place] [address] Care Team Providers Care Sales Team Recruiter Name Role Phone Rocco Mcguire MD Primary Care Provider Andrés Meade Unavailable [phone] Allergies Allergen (clinical drug ingredient) Drug/Non Drug [...] Active Gabapentin 300 MG (Prior Auth: Rx Ref#:[id number]) Oral; Duration: 30 Active traMADol HCl 50 MG (Schedule IV Drug) ( Prior Auth: Rx Ref#:[id number]) Oral; Duration: 5 Not-Taking LORazepam 0.5 MG [...] Problem Acquired hammer toe of left foot (4844017422145 103) Hammertoe of left foot (M20.42) Active confirmed Problem Acquired hammer toe of right foot (5111726285533 105) Hammertoe of right foot (M20.41) Active confirmed Plan Of Treatment Pending Test Test Name Order Date 28108-WYUZZEOP OF HEMATOMA/FLUID 018 Insurance Providers Payer Name Payer Address Payer Phone Subscriber Number Group Number Insured Name Patient Relationship to Insured Coverage Start Date Coverage End Date [employer] Medicare [id number] [address] [address] [place] [address] [id number] Kaitlynn Rankin Self - patient is the [...]
--- OUTSIDE RECORDS SUMMARY | 2025-01-20 06:45 | XMS_ITS | Clinical Summary ---
Author Organization [facility] Address [address] [place] [address] Care Team Providers Care Community Cultural Development Officer Name Role Phone Unavailable Primary Care Provider [...] Influencers of Health Screening 05/16/2024 Influenza Vaccine (#1) 2025 HIB Vaccines Aged Out No longer [...]
--- OUTSIDE RECORDS SUMMARY | 2025-01-20 06:45 | XMS_ITS | Patient Health Record ---
Author Organization [facility] Address [address] [place] [address] Care Team Providers Care Nurse Assistant Name Role Phone Johnny Mally BASSETT Primary Care Provider Nikos Varela Unavailable [phone] Allergies Allergen (clinical drug ingredient) Drug/Non Drug Allergy documented on EMR Reaction Allergy Type Onset Date Status amoxicillin AMOXICILLIN (uncoded) Unknown Allergy Active Results Component Value Reference Range Notes Ferritin Reviewed date:01/04/2025 10:08:00 PM Interpretation: Performing Lab:[facility], [address] [place] [id number] Notes/Report: Ferritin 48 10-250 ng/mL Complete Blood Count Auto Di ff (Not yet reviewed by provider) Interpretation: Performing Lab:[facility], [address] [place] [id number] Notes/Report: White Blood Count 8.0 4.8-10.8 X10*3/uL [...] X10*3/uL NRBC Abs Auto 0.000 0.0-0.012 X10*3/uL Liver Panel Reviewed date:01/04/2025 10:16:15 PM Interpretation: Performing Lab:[address] [phone] Notes/Report: Bilirubin Total 0.7 0.0-1.0 mg/dL Bilirubin Direct 0.2 0.0-0.5 mg/dL Aspartate Amino Transferase 37 5-31 U/L Alanine Aminotransferase 27 0-31 U/L Total Protein 6.7 6.5-8.0 g/dL Albumin Level 3.8 3.5-5.0 g/dL Alkaline Phosphatase 82 39-117 U/L IRON PROFILE Reviewed date:01/04/2025 10:16:45 PM Interpretation: Performing Lab:[address] [address] Notes/Report: Iron 81 30-160 mcg/dL Total Iron Binding Capacity 340 228-428 mcg/d L Percent Iron Saturation 24 15-50 % Unsaturated Iron Binding 259 Reason For Referral No Information Medications Medication [...] Status Risk Notes Problem Irritable bowel syndrome (65402735) Irritable bowel syndrome (K58.9) Active confirmed Problem Rectal bleeding (70553675) Rectal bleeding (K62.5) Active confirmed Problem 219617051 Irritable bowel syndrome with diarrhea (K58.0) Active confirmed Problem Irritable bowel syndrome (61028741) IBS (irritable bowel syndrome) (K58.9) Active confirmed Problem 422701936 Gastroesophageal reflux disease without esophagitis (K21.9) Active confirmed Problem 160777973 Gastroesophageal reflux disease, esophagitis presence not specified (K21.9) Active confirmed Problem Hemorrhage of rectum and anus (538513482) Rectal bleed (K62.5) Active confirmed Problem 90367291 Diarrhea, unspecified type (R19.7) Active confirmed Problem Left lower quadrant pain (590055842) Intermittent left lower quadrant abdominal pain (R10.32) Active confirmed Vital Signs Temperature 97.9 degrees Fahrenheit 12/29/2024 Blood pressure diastolic 01 mm Hg 12/29/2024 Height 66 in 12/29/2024 Blood pressure systolic 001 mm Hg 12/29/2024 Weight 163.2 lbs 12/29/2024 BMI 26.34 kg/m2 12/29/2024 Procedures Procedure Date Ordered Date Performed Result Body Sit e COLONOSCOPY 12/29/2024 N/A Encounters Encounter Location Date Provider Diagnosis [facility] [address] [place] [address] 12/29/2024 Nikos Jeffery Rectal bleeding K62.5 and Irritable bowel syndrome K58.9 [facility] [address] [place] [address] 12/29/2024 Nikos Jeffery Rectal bleed K62.5 Assessments [...] DIFF 12/29/2024 Complete Blood Count Auto Diff Future Test Test Name Order Date COLONOSCOPY 12/31/2011 UPPER GI ENDOSCOPY 09/10/2016 COLONOSCOPY 09/10/2016 Next Appt Details Provider Name:Nikos Jeffery , 01/24/2025 02:40:00 PM, [address] [place] [address] , [place], [place], [id number], Insurance Providers Payer Name Payer Address Payer Phone Subscriber Number Group Number Insured Name Patient Relationship to Insured Coverage Start Date Coverage End Date [facility] [address] [address] [place] [id number] JEROMY BENNETT Self - patient is the insured Medical (General) History Medical History History ICD Code Colonoscopy 05-10-2002-negative for polyp s Skin cancer left ear-squamous Chronic lymphocytic leukemia (CLL)-dx'd in 2004-followed by Dr. 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 colonoscopy in 02/2017- no polyps, n o colitis EGD in 02/2017 with a small H H- no esophagitis nor Funes's, no celiac disease, no Hpylori Irritable bowel syndrome-had normal duod enal biopsies in 2016 CLL- followed at [facility] 03/2022 Surgical History Surgery Date(Month/Year) Tonsillectomy with finding of the lympho ma/CLL Skin cancers as above Cataracts Port in chest-removed in 2008 Cholecystectomy Appy Hysterectomy with BSO Spinal tumor- benign
--- OUTSIDE RECORDS SUMMARY | 2025-01-20 06:45 | XMS_ITS | Data Portability ---
Author Organization [place] - [facility], Allergy Address [address] [facility] [address] [place] [address] Care Team Providers Care Owner Spa Director Name Role Phone LIMAROCAEL Primary Care Provider [phone] Assessment Encounter Date Assessment Date Assessment LastModified [...] 02/09/2024 15:53:06 05/26/2024 05/26/[address] [facility] ed barium swallow shows flash laryngeal [...] [place], modified barium swallow study 2023 024 [facility] Diagnosit Imaging Dept, [address] [place] [address], [address], 12:24:36 Medication Orders None recorded. Patient TargetsNo [...] Not Available 01:53:53 04/30/2004/29/2024 valeria GRULLON study [facility] Diagno stic Imagin g Depart ment [address] [place] [address] ____ Gus t: JEROMY BENNETT /Age/S ex: 1 - 79 - F Unit#: [id number] Locati on/Sta tus: CARISA T/PRE CLI Accoun t#: [id number] Mnemon ic/Ord ering Site: AND[facility] W[facility]ID/S PDI [...] stomac h. 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 DAP: 0.31 Gycm 2 Exam perfor med and dictat ed by: Mray Brenner PA-C Superv ising physic shira: Shawn [...] wendy: 1233 Sign date/T wendy: 1153 [email or web address] [facility] Diagnosit Imaging Dept [address] [place], [address], 05/21/2024 14:42:50 05/18/2004/29/2024 ruchi em isabel study No observ ation record ed. [email or web address] Not Available 05/21 14:42:31 Result Notes Documentation Provider Name and Address Organization Details Recorded Time Fl, Modified Barium Swallow Study : [facility] Diagnostic Imaging Department [address] [place] [id number] Patient: JEROMY BENNETT D.O.B./Age/Sex: 1945 - 79 - F Unit#: [id number] Location/Status: SPREHST/PRE CLI Mnemonic/Ordering Site: [facility] Ordering Physician: EILEEN GARSIA MD CR [...] boyd [place] - [facility] 05/21/2024 14:42:50 Problems Name Problem SNOMED Code Status Onset Date Resolution Date Notes Provider Name and Address Organization Details Recorded Time Acute frontal sinusiti s 56382936 Active 2014 Acute frontal sinusiti s; Note: Date Diagnose d: 02/06/2015 2:34 PM (461.1) Not Available [facility] 4 02:52:23 Allergic rhinitis 66022871 Active 2014 Allergic rhinitis : Due to other allergen ; Note: Date Diagnose d: 03/10/2015 10:59 AM (477.8) Not Available [facility] 4 02:52:17 Recurren t acute sinusiti s 423654278 Active 2014 Acute recurren t sinusiti s involvin g more than one sinus but not pansinus itis; Note: Date Diagnose d: 05/17/20 15 4:55 PM (J01.81) Not Available [facility] 4 02:52:18 Headache 06373686 Active 2014 Headache ; Note: Date Diagnose d: 06/16/20 15 2:55 PM (R51) Not Available [facility] 4 02:52:18 Acute maxillar y sinusiti s 25297369 Active 2015 Acute maxillar y sinusiti s; Note: Date Diagnose d: 02/06/2015 2:34 PM (461.0) ; Start Date : 02/07/20 15 Acute recurren t maxillar y sinusiti s; Note: Date Diagnose d: 09/05/2015 3:32 PM (J01.01) Not Available [facility] 4 02:52:20 Mixed conducti ve and sensorin eural hearing loss of left ear 34812751880 107 Active 2015 Mixed conducti ve and sensorin eural hearing loss, unilater al, left ear, with unrestri cted hearing on the contrala teral side; Note: Date Diagnose d: 11/09/2015 1:30 PM (H90.72) Not Available [facility] 4 02:52:16 Acute serous otitis media of left ear [id number] 41645 Completed 201502/06/2024 Acute serous otitis media, left ear; Note: Date Diagnose d: 11/09/2015 3:47 PM (H65.02) Not Available [facility] 4 02:52:18 Chronic rhinitis 64311022 Active 2015 Chronic rhinitis ; Note: Date Diagnose d: 11/09/2015 3:48 PM (J31.0) Not Available [facility] 4 02:52:20 Sensorin eural hearing loss 04525385 Active 2015 Sensorin eural hearing loss, unilater al, right ear, with unrestri cted hearing on the contrala teral side; Note: Date Diagnose d: 11/09/2015 1:30 PM (H90.41) Not Available [facility] 4 02:52:18 Dizzines s and giddines s 936673860 Active 2015 Dizzines s and giddines s; Note: Date Diagnose d: 11/09/2015 1:30 PM (R42) Not Available [facility] 4 02:52:17 Sensorin eural hearing loss of bilatera l ears 709533082 Active 2015 Sensorin eural hearing loss, bilatera l; Note: Date Diagnose d: 6 2:30 PM (H90.3) Not Available [facility] 4 02:52:20 Posterio r rhinorrh ea 70184572 Active 2015 Postnasa l drip; Note: Date Diagnose d: 6 11:32 AM (R09.82) Not Available [facility] 4 02:52:22 Impacted cerumen in left ear 54087281484 82151 Active 2015 Impacted cerumen, left ear; Note: Date Diagnose d: 6 11:33 AM (H61.22) Not Available [facility] 4 02:52:19 Chronic maxillar y sinusiti s 40106136 Active 2015 Chronic maxillar y sinusiti s; Note: Date Diagnose d: 06/05/20 16 10:34 AM (J32.0) Not Available [facility] 4 02:52:21 Cough 68606079 Active 2015 Cough; Note: Date Diagnose d: 06/05/20 16 10:41 AM (R05) EILEEN GARSIA MD [address] [place] [address], [facility] [place], [phone] [facility] - [facility] 4 12:51:15 Disorder of nasal sinus 1818216 Active 2018 Other specifie d disorder s of nose and nasal sinuses; Note: Date Diagnose d: 09/08/2018 1:22 PM (J34.89) Not Available [facility] 4 02:52:22 Disorder of the nose 55351917 Active 2018 Other specifie d disorder s of nose and nasal sinuses; Note: Date Diagnose d: 09/08/2018 1:22 PM (J34.89) Not Available [facility] 4 02:52:23 Hypertro phy of tonsils 97169647 Active 2021 Hypertro phy of tonsils; Note: Date Diagnose d: 2 11:00 AM (J35.1) Not Available [facility] 4 02:52:19 Follow-u p visit Active 2021 Encounte r for follow-u p examinat ion after 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 ; Note: Date Diagnose d: 2 2:32 PM (Z08) Not Available [facility] 4 02:52:21 Chronic lymphoid leukemia , disease 88049712 Active 2021 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; Note: Date Diagnose d: 2 10:47 AM (C91.10) EILEEN GARSIA MD [address] [place] [address], [place], [address] , [facility] - [facility] 4 12:51:11 Acute pharyngi tis 165547767 Active 2021 Sore throat (acute) NOS; Note: Date Diagnose d: 12/11/2021 3:22 PM (J02.9) Acute pharyngi tis, unspecif ied; Note: Date Diagnose d: 2 10:46 AM (J02.9) ; Start Date : 10/18/19 22 Not Available [facility] 4 02:52:17 Dysphagi a 38637915 Active 2023 EILEEN GARSIA MD [address] [place] [address], [place], [address] , [facility] - [facility] 4 15:48:37 Problem Notes None recorded. Procedures Surgical History Date Name Laterality Status Provider Name and Address Organization Details Recorded Time 05/26/2024 Telehealth completed EILEEN GARSIA MD [address] [place] [address], [phone], [facility] - [facility] 05/25/2024 14:31:24 02/09/2024 FOL_DP completed EILEEN GARSIA MD [address] [place] [address], [phone], [facility] - [facility] 02/09/2024 15:48:21 Imaging Results None recorded. Procedure Notes None recorded. Medical Equipment None Reported. Allergies Allergen ID Allergen Name Allergen Category Reaction Reaction Severity Criticality Documentation Date Start Date Code Code System Note Provider Name and Address Organization Details Recorded Time 36047 amoxicill in medicatio n other Not available Not available 11/18/2023 723 RxNorm React ion: unkno wn, unspe cifie d;; Not Available [facility] 01:02:39 90686 codeine sulfate medicatio n other Not available Not available 11/18/2023 29946 RxNorm React ion: unkno wn, unspe cifie d;; Not Available [facility] 4 01:02:50 Medications Name Sig Start Date Stop Date Status Note LastModified by Organization Details LastModified Time prednison e 10 mg tablet 4 tablet by mouth 04/05 completed Medicati on ID: [id number] P ishaan d By Name: ETTA Montes [...] eye drops 08/29 completed Medicati on ID: [id number] Du ration Value: 16 Brand Name: ofloxaci n Send Method: E-Prescr ibed Sub s Allowed: subs OK Medic ationGen ericName : ofloxaci n Not Available Not Available Not Available prednison e 20 mg tablet 2 tablet by mouth 2015 active Medicati on ID: [id number] D uration Value: 5 Prescri bed By [...] mg tablet 06/13 completed Medicati on ID: [id number] B chavo Name: laine abbott Send Method: [...] affected area 02/08 completed Medicati on ID: [id number] D uration Value: 7 Prescri bed By [...] 2016 02/23 /2022 completed Medicati on ID: [id number] P rescribe d By Name: Claudia Pate [...] tion breath activated active Medicati on ID: [id number] B rand Name: Pulmicor t Flexhale r Send Method: E-Prescr ibed Sub s Allowed: subs OK Medic ationGen ericName : Pulmicor t Flexhale r Not Available Not Available Not Available omeprazol e 20 mg tablet,de layed release 06/13 completed Medicati on ID: [id number] Br and Name: Prilosec Send Method: E-Prescr ibed Sub s Allowed: subs OK Speci al Instruct ion: TAKE ONE CAPSULE BY MOUTH daily BEFORE A MEAL Med icationG enericNa me: Prilosec Medicat ion ID: [id number] Br and Name: Prilosec Send Method: E-Prescr ibed Sub s Allowed: subs OK Speci al Instruct ion: TAKE ONE CAPSULE BY MOUTH daily BEFORE A MEAL Med icationG enericNa me: Prilosec Not Available Not Available Not Available Heartburn Relief (ranitidi ne) 150 mg tablet 06/13 completed Medicati on ID: [id number] Br and Name: Zantac S end Method: [...] Updated DateTime 02/09/2024 168.91 cm 26.2 kg/m2 03630.74 g Kathy Martinez [place] - [facility] 02/09/2024 15:30:53 Social History None recorded. Functional Status None recorded. Mental Status None recorded. Family History Nothing Reported. Medical History No medical history recorded. Gynecological HistoryNo gynecological history recorded. Obstetrics History GPAL:G 0 P 0 0 0 0 Past Encounters Encounter ID Performer Location Encounter Start Date Encounter Closed Date Diagnosis/Indication Diagnosis SNOMED-CT Code Diagnosis ICD10 Code Diagnosis Note [id number] EILEEN GARSIA MD [facility] [address] [address] 02/09/2024 14:40:23 02/09/2024 15:54:03 Chronic lymphoid leukemia, disease 18433622 C91.10 Cough 43138724 R05.3 Dysphagia 38848128 R13.1 0 [id number] EILEEN GARSIA MD [facility] [address] [address] 05/26/2024 16:13:43 05/27/2024 07:34:11 Cough 43351512 R05.3 Health Concerns Section Related Observation LastModified by Organization Detai ls LastModified Time None Recorded Concern Status LastModified by Organization Details LastModified Time None Recorded Advance Directives Directive None Recorded Payers Insurance Date Sequence Insurance Name Policy Number Policy Andres Covered Member ID Andres Member ID Guarantor Name 05/25/2024 1 [facility] (MEDICARE REPLACEMENT/A DVANTAGE - PPO) [id number] Jeromy Lewis Doktor [id number] Jeromy Lewis Doktor Notes Date Note Type [...] no treatment was recommended EILEEN GARSIA MD [address] [place] [address], [phone], [facility] - [facility] 02/09/2024 15:53:28 05/26/2024 text/html cough, PNDmultip le [...] associated moderate esophageal narrowing EILEEN GARSIA MD [address] [place] [address], [place], [address], [place] - [facility] 05/26/2024 16:29:42 OBGyn Episode No OBEpisode recorded.
--- NOTE | 2025-01-21 08:58 | P.CONAN_ITS ---
HPI - Anesthesia Eval Consult details Narrative: 79yo F for Colonoscopy Eliquis for afib s/p RFA pulmo vein isolation. Follows [facility] cardiology. Stable at 06/2024 office visit with 1 year routine f/u CLL on IVIG q4 weeks [facility] Past Medical History Medical History (Updated 01/21/25 @ 12:26 by Anel Crane NP) Afib Skin cancer CLL (chronic lymphocytic leukemia) Surgical History Surgical History (Updated 01/21/25 @ 12:25 by Anel Crane NP) S/P tonsillectomy History of cholecystectomy Hx of appendectomy H/O: hysterectomy Hx of esophagogastroduodenoscopy Hx of colonoscopy Meds Allergies Allergy/AdvReac Type Severity Reaction Status Date / Time amoxicillin (Amoxicillin) Allergy Unknown RASH Unverified 03/23/20 16:13 codeine (Codeine) Allergy Unknown UPSET Unverified 03/23/20 16:13 STOMACK Codeine Phosphate Allergy Unknown Uncoded 08/17/12 00:00 Exam Pertinent Lab Results Pertinent Lab Results: CBC and BMP 11/2024 from [facility] [place] Narrative Narrative: EKG 11/2024 Ventricular Rate: 68 BPM Atrial Rate: 68 BPM P-R Interval: 174 ms QRS Duration: 82 ms Q-T Interval: 416 ms QTC Calculation(Bazett): 442 ms P Smithfield: 61 degrees R Smithfield: 82 degrees T Smithfield: 73 degrees Normal sinus rhythm Normal ECG When compared with ECG of 07-Jun-2024 13:56, No significant change was found Confirmed by Naeem Joshua ([id number]) on 11/15/2024 2:55:02 PM Assessment and Plan Assessment Anesthesia Assessment: Chart Reviewed
[2025-01-24] MEDS: Lactated Ringers 1,000 ML 100 ML IVCONT (09:52)
[2025-01-24 09:53] VITALS: BMI 25.6
[2025-01-24 09:58] VITALS: BP 118/81; PULSE 86; RESP 18; TEMP 36.7; O2SAT 96
--- NOTE | 2025-01-24 10:41 | HO.ANESPROP2 ---
[facility] Past Medical History Medical History Afib Skin cancer CLL (chronic lymphocytic leukemia) Functional capacity: independent ambulation Patient : No Family History Family history of problems with anesthesia: No Surgical History Surgical History S/P tonsillectomy History of cholecystectomy Hx of appendectomy H/O: hysterectomy Hx of esophagogastroduodenoscopy Hx of colonoscopy History of Problems with Anesthesia: No Social History Social History Are you a primary career placement services counselor to a significant other at home: No Do you presently have visiting nurse or other home services: No Patient Tobacco Use Status: Never used Tobacco Have you been hit, kicked, punched, or otherwise hurt by someone within the past year? If so, by whom?: No Are you DNR?: No Advance Directives: No Advance Directives Information Provided: Yes Poor oral hygiene: Yes Meds Allergies Allergy/AdvReac Type Severity Reaction Status Date / Time amoxicillin (Amoxicillin) Allergy Unknown RASH Verified 01/24/25 10:01 codeine (Codeine) Allergy Unknown UPSET Verified 01/24/25 10:01 STOMACK Active Medications: Current Medications Lactated Ringer's (Lr) 1,000 mls @ 100 mls/hr IVCONT .Q10H SAULO Last Admin: 01/24/25 09:52 Dose: 100 mls/hr Sodium Biphosphate/Sodium Phosphate (Sodium Phosphate,Donley-Dibasic 133 Ml Enema) 133 ml MS ONCE PRN PRN Reason: Poor Colonoscopy Prep Results Home Medications ?Medication ?Instructions ?Recorded ?Confirmed ?Last Taken ?Type apixaban 2.5 mg tablet (Eliquis) 2.5 mg PO BID 01/21/25 01/21/25 01/21/25 History levothyroxine 50 mcg tablet 50 mcg PO 01/21/25 01/21/25 Unknown History metoprolol succinate 25 mg 12.5 mg PO BID 01/21/25 01/21/25 01/24/25 History tablet,extended release 24 hr omeprazole 40 mg capsule,delayed 40 mg PO DAILY 01/21/25 01/21/25 Unknown History release Exam Height,Weight and Vital Signs: Height 5 ft 6.75 in Weight 73.663 kg Last Vital Signs Temp 98.1 F 01/24/25 09:58 Pulse 86 01/24/25 09:58 Resp 18 01/24/25 09:58 BP 118/81 01/24/25 09:58 Pulse Ox 96 01/24/25 09:58 O2 Del Method Room Air 01/24/25 09:58 Airway Mallampati Class: II TM Dist: >3cm Neck ROM: Full Heart: RRR Lungs: CTA Assessment and Plan Assessment Anesthesia Assessment: Anesthesia Plan Discussed Final Anesthetic Review Family History of Problems with Anesthesia: No History of Problems with Anesthesia: No NPO: Yes ASA Class: II Final Preanesthetic Review: Meds/Allgs Chart Reviewed, Consent Obtained/Reviewed and Anes Risks/Benef Reviewed Patient Risk: Low Procedure Risk: Low Anesthetic Plan Anesthetic Plan: MAC: Disposition: Standard PACU
[2025-01-24 12:00] VITALS: BP 98/52; PULSE 86; RESP 18; TEMP 36.1; O2SAT 96
--- NOTE | 2025-01-24 12:05 | PM.OP ---
Brief Operative Note Date of Service: 01/24/25 Pre-op diagnosis: Rectal bleeding Post-op diagnosis: other (Colon polyps) Procedure: Colonoscopy to the cecum and TI with hot snare polypectomy x 3 with placement of Resolution clips on each site, and biopsy removal of polyp. Surgeon: Nikos Jeffery MD Anesthesia: MAC Was an Marketing Researcher used for this Procedure?: No Estimated blood loss (mL): 2.0 Pathology: other (A. Transverse colon polyp B. Cecal polyp C. Polyp at 20cm D. Rectal polyp) Condition: stable Disposition: PACU
[2025-01-24 12:15] VITALS: BP 124/60; PULSE 78; RESP 16; O2SAT 96
[2025-01-24 12:30] VITALS: BP 116/59; PULSE 71; RESP 16; TEMP 36.2; O2SAT 97
--- NOTE | 2025-01-24 12:33 | HO.POSTANES ---
Post Anesthesia Evaluation Post Anesthesia Evaluation Date of Service: 01/24/25 Vital Signs: Vital Signs Temp Pulse Resp BP Pulse Ox O2 Del Method 01/24/25 12:30 97.2 F 71 16 116/59 L 97 Room Air 01/24/25 12:15 78 16 124/60 96 Room Air 01/24/25 12:00 97 F 86 18 98/52 L 96 Room Air 01/24/25 09:58 98.1 F 86 18 118/81 96 Room Air Anesthesia: Monitored Mental Status: Awake Pain Control: Satisfactory Nausea/Vomiting: None Hydration: Adequate Anesthesia-Related Issues: No Anes. Related Issues
--- NOTE | 2025-01-24 12:36 | OP_ITS ---
DATE OF SERVICE: 01/24/2025 SURGEON: Nikos Jeffery MD PREOPERATIVE DIAGNOSIS: POSTOPERATIVE DIAGNOSIS: PROCEDURE PERFORMED: Colonoscopy to cecum and terminal ileum with biopsy and removal of cecal polyp, and hot snare polypectomy x 3 with placement of resolution clips. ESTIMATED BLOOD LOSS: COMPLICATIONS: ANESTHESIA: Monitored anesthesia care. ASSISTANTS: SPECIMENS: PREOPERATIVE DIAGNOSES: Hematochezia, history of tubular adenomas of the colon. POSTOPERATIVE DIAGNOSES: Hematochezia, history of tubular adenomas of the colon, colon polyps, diverticulosis, and internal hemorrhoids. INDICATION: Intermittent hematochezia. Full consent was obtained from her for this, including risks of bleeding and perforation. DESCRIPTION OF PROCEDURE: The patient was placed in the left lateral decubitus position. The digital rectal exam revealed diminished sphincter tone and some prolapsing hemorrhoidal tissue. The [employer] video pediatric colonoscope was entered into the rectum and advanced easily to the cecum. Once in the cecum, I did identify cecal pouch, appendiceal orifice and a normal-appearing ileocecal valve. The terminal ileum was cannulated and appeared normal. Scope was withdrawn back in the colon. In the cecum was an approximately 3 mm polyp, which was removed by cold biopsy forceps. There was no sign of any residual polyp nor significant bleeding. The remainder of the cecum appeared normal. The scope was then slowly withdrawn assessing all mucosal surfaces carefully. Preparation was excellent. In the transverse colon was an approximately 8 mm polyp, which was removed by hot snare polypectomy and recovered by suction. The polypectomy site appeared clean, without any sign of residual polyp nor bleeding. A single resolution clip was applied to the polypectomy site with good deployment and good hemostasis. At 20 cm was an approximately 6 to 8 mm grossly adenomatous polyp, which was also removed by hot snare polypectomy and recovered by suction. The polypectomy site appeared clean, without any sign of residual polyp nor bleeding. A single resolution clip was applied to the polypectomy site with good deployment and good hemostasis. There was a moderate amount of sigmoid diverticulosis. I did not visualize any sign of colitis nor angiodysplasia. In the mid-rectum, seen best in the forward viewing position, was an approximately 1.5 cm polyp on a short stalk, which was removed by hot snare polypectomy and withdrawn from the patient on the tip of the scope. The scope was readvanced back to the polypectomy site which appeared clean, without any sign of residual polyp nor bleeding. A total of 3 resolution clips were applied to the polypectomy site with good deployment and good hemostasis. The remainder of the rectum appeared normal. The scope was retroflexed visualizing somewhat friable internal hemorrhoidal tissue, but no other pathology. The scope was straightened and withdrawn from the patient. She tolerated the procedure well and was returned to recovery area in stable condition. IMPRESSION: 1. Colon polyps. 2. Internal and external hemorrhoids. 3. Diminished sphincter tone. PLAN: The results of the pathology will be checked. Given her age, I do not think she will need any further screening colonoscopies. She does not use any aspirin or NSAIDs long-term as she is on Eliquis. She was advised to resume her Eliquis in 72 hours. She will see me on a p.r.n. basis. MD SHANELL Garsia/SIDDHARTH / [phone] MTDD
== END 2025-01-24 13:08 | disposition home or self-care (01) ==
PROVIDERS: PCP Nurse Practitioner Family; Visit Provider Internal Medicine
PROC: 0DJD8ZZ Inspection of Lower Intestinal Tract, Via Natural or Artificial Opening Endoscopic (ICD-10-PCS; CPT 45378; principal; 2025-01-24 13:40)
DX: K62.5 Hemorrhage of anus and rectum (principal); Z86.0101 Personal history of adenomatous and serrated colon polyps; D12.0 Benign neoplasm of cecum; D12.3 Benign neoplasm of transverse colon; D12.5 Benign neoplasm of sigmoid colon; D12.8 Benign neoplasm of rectum; K57.30 Diverticulosis of large intestine without perforation or abscess without bleeding; K64.8 Other hemorrhoids; K64.4 Residual hemorrhoidal skin tags; K58.9 Irritable bowel syndrome, unspecified; K21.9 Gastro-esophageal reflux disease without esophagitis; I48.91 Unspecified atrial fibrillation; C91.11 Chronic lymphocytic leukemia of B-cell type in remission; Z92.21 Personal history of antineoplastic chemotherapy; Z85.828 Personal history of other malignant neoplasm of skin; Z79.01 Long term (current) use of anticoagulants; Z79.899 Other long term (current) drug therapy; Z88.1 Allergy status to other antibiotic agents; Z88.5 Allergy status to narcotic agent; Z90.49 Acquired absence of other specified parts of digestive tract; Z98.890 Other specified postprocedural states
CPT/HCPCS: 45385; 45380; 88305; J2003; J2704